=== PATIENT | male | born 1980 | race African-American/Black ===

== ENCOUNTER 2022-05-10 22:18 | Emergency (ER) | payer SELFPAY ==
[2022-05-10 22:16] VITALS: BP 110/71; PULSE 80; RESP 16; TEMP 36.6; O2SAT 100
[2022-05-10 22:21] VITALS: O2SAT 100
[2022-05-10 22:30] VITALS: O2SAT 100
[2022-05-10 22:31] VITALS: BP 112/77; O2SAT 99
[2022-05-10 22:45] VITALS: O2SAT 99
[2022-05-10 22:48] VITALS: BP 113/68; O2SAT 98
[2022-05-10] MEDS: SODIUM CHLORIDE 0.9% IV 1,000 ML 999 ML IV CONT (22:50)
--- NOTE | 2022-05-10 23:11 | ED.DIZZY ---
HPI - Dizziness General Chief Complaint: Syncope Stated Complaint: DIZZY Time Seen by Provider: 05/10/22 22:45 History of Present Illness HPI Narrative: 41-year-old male presents emergency room secondary to a near syncopal episode. He gave plasma earlier today. He got home had not eaten anything but some crackers. He is feeling extremely weak and questionable whether he may have passed out for a few seconds. Patient is not drank a significant amount of fluids today. Last time he gave plasma was about 4 years ago. Also complaining of some muscle cramping seem to be worse in his legs. Denies any chest pain shortness of breath. Related Data Allergies Allergy/AdvReac Type Severity Reaction Status Date / Time No Known Drug Allergies Allergy Mild Verified 09/19/11 11:09 Review of Systems Review of Systems: CONSTITUTIONAL: Denies fever, chills, or sweats. EYES: Denies visual changes, redness, or discharge. ENT: Denies rhinorrhea, congestion, sore throat, or otalgia. CARDIOVASCULAR: Denies chest pain, palpitations, or edema. RESPIRATORY: Denies cough or dyspnea. GASTROINTESTINAL: Denies abdominal pain, nausea, vomiting, or diarrhea. GENITOURINARY: Denies dysuria or hematuria. SKIN: Denies rash or itching. MUSCULOSKELETAL: Denies back pain, joint pain, or myalgia. NEUROLOGIC: Denies headache, numbness, or weakness. PSYCHIATRIC: Denies anxiety or depression. PMFSH Past Medical History Medical History (Updated 05/10/22 @ 23:54 by Wagner Freitas DO) No pertinent past medical history Social History Social History (Updated 05/10/22 @ 23:12 by Wagner Freitas DO) Living arrangements: with family Exam Narrative: APPEARANCE: Well appearing, no pain or distress, well-nourished. Head Normocephalic and atraumatic. EYES: PERRLA/EOMI, conjunctivae clear. NOSE: Normal with no drainage EARS:TMS clear with Melissa, with good light reflex. THROAT: Pharynx clear, no exudate. Lips are dry NECK: Supple. No adenopathy, no masses. RESPIRATORY: Airway patent, respirations nonlabored. Clear to auscultation bilaterally, no rales, rhonchi, wheezing. CARDIOVASCULAR: Regular rate and rhythm without murmurs, rubs, or gallops. ABDOMINAL: Soft, nontender, nondistended, no hepatosplenomegaly Musculoskeletal: Moves all extremities. Strength/ROM intact, No edema, No calf tenderness. NEURO: Alert. Cranial nerves II through XII intact. Normal gait. Good coordination. Nonfocal examination. SKIN:: Warm, dry. Normal Color PSYCHIATRIC: Normal affect/mood, normal interaction Course Vital Signs Vital signs: Vital Signs Temperature 97.8 F 05/10/22 22:16 Pulse Rate 80 05/10/22 22:16 Respiratory Rate 16 05/10/22 22:16 Blood Pressure 110/71 05/10/22 22:16 Pulse Oximetry 100 05/10/22 22:16 Oxygen Delivery Room Air 05/10/22 22:16 Temperature 97.8 F 05/10/22 22:16 Pulse Rate 80 05/10/22 22:16 Respiratory Rate 16 05/10/22 22:16 Blood Pressure 113/68 05/10/22 22:48 Pulse Oximetry 98 05/10/22 22:48 Oxygen Delivery Room Air 05/10/22 22:16 MDM - Dizziness MDM Narrative Medical decision making narrative: Presentation is indicative of probable dehydration. Patient gave plasma today and did not drink very much. He also did not eat very much. In the emergency room patient was given a liter of normal saline and began feeling much better. He wants to go home at this time to get some rest. Told him he needs to increase his fluid consumption. Discharge Plan Discharge Clinical Impression: Dehydration, Near syncope Patient Disposition: Home, Self-Care Condition: Improved Instructions: Dehydration (ED) Additional Instructions: Increase fluids. Return if worse. Tylenol Advil as needed. Follow-up/Referrals: PHYSICIAN,[employer]PELL[employer] JUDGE [Primary Care Provider] - Time of Disposition: 23:54
[2022-05-10] MEDS: KETOROLAC 30 MG/ML VIAL (*BKC) IV PUSH (23:40)
[2022-05-11 00:35] VITALS: BP 107/60; PULSE 71; RESP 16; O2SAT 97
== END 2022-05-11 00:37 | disposition home or self-care (01) ==
PROVIDERS: Emergency Provider Emergency Medicine
DX: E86.0 Dehydration (principal); R55 Syncope and collapse
CPT/HCPCS: 96361; 96374; 99284; J1885; J7030

== ENCOUNTER 2022-06-30 12:11 | Emergency (ER) | payer SELFPAY ==
[2022-06-30 12:46] VITALS: BP 135/87; PULSE 89; RESP 14; TEMP 36.6; O2SAT 98
--- NOTE | 2022-06-30 12:58 | ED.GENADULT ---
HPI - General Adult General Chief complaint: Extremity Injury, Upper Stated complaint: WANTS CHECK UP Time Seen by Provider: 06/30/22 12:51 History of Present Illness HPI narrative: Pt presents requesting medical clearance to go back to work. Pt had bruising from blood draw but says it's fine now. Pt has no complaints. Related Data Allergies Allergy/AdvReac Type Severity Reaction Status Date / Time No Known Drug Allergies Allergy Mild Verified 09/19/11 11:09 Review of Systems Review of Systems: All systems reviewed & are unremarkable except as noted in HPI and below PMFSH Past Medical History Medical History (Updated 06/30/22 @ 13:01 by Leila Poon III, DO) No pertinent past medical history Exam Const: General: healthy appearing and no acute distress Nutritional Appearance: well nourished Orientation/consciousness: patient oriented x3 Limitations: no limitations HENMT: Head: normal to inspection Mouth: Yes Normal oral and palatal mucosa present Eyes: Conjunctivae: conjunctivae normal EOM: EOMs intact bilaterally Neck: Neck: normal visual inspection, no lymphadenopathy and no meningeal signs Chest: Chest palpation & inspection: normal inspection of the chest Resp: Effort & Inspection: normal respiratory effort Auscultation: clear to auscultation bilaterally Cardio: Rate: regular rate Rhythm: regular rhythm GI: GI Palp: Yes Soft to palpation Skin: General skin exam: normal color Other: small bruise fro site of blood draw in AC's b/l no clot Neuro: General: patient oriented x3, moves all extremities, no meningeal signs and no focal motor deficits Cranial nerves: Yes Nystagmus not present Speech: normal speech Extrem: General: normal to inspection Psych: Mental Status: mental status grossly normal Affect: normal affect Attitude: cooperative Course Vital Signs Vital signs: Vital Signs Temperature 97.9 F 06/30/22 12:46 Pulse Rate 89 06/30/22 12:46 Respiratory Rate 14 06/30/22 12:46 Blood Pressure 135/87 06/30/22 12:46 Pulse Oximetry 98 06/30/22 12:46 Oxygen Delivery Room Air 06/30/22 12:46 Temperature 97.9 F 06/30/22 12:46 Pulse Rate 89 06/30/22 12:46 Respiratory Rate 14 06/30/22 12:46 Blood Pressure 135/87 06/30/22 12:46 Pulse Oximetry 98 06/30/22 12:46 Oxygen Delivery Room Air 06/30/22 12:46 Medical Decision Making Vital Signs Vital Signs: Vital Signs Temperature 97.9 F 06/30/22 12:46 Pulse Rate 89 06/30/22 12:46 Respiratory Rate 14 06/30/22 12:46 Blood Pressure 135/87 06/30/22 12:46 Pulse Oximetry 98 06/30/22 12:46 Oxygen Delivery Room Air 06/30/22 12:46 Temperature 97.9 F 06/30/22 12:46 Pulse Rate 89 06/30/22 12:46 Respiratory Rate 14 06/30/22 12:46 Blood Pressure 135/87 06/30/22 12:46 Pulse Oximetry 98 06/30/22 12:46 Oxygen Delivery Room Air 06/30/22 12:46 Discharge Plan Discharge Clinical Impression: Bruise of both arms Patient Disposition: Home, Self-Care Condition: Stable Instructions: Antibiotic Form, Contusion in Adults (ED) Follow-up/Referrals: PHYSICIAN,[employer] [Primary Care Provider] -
== END 2022-06-30 13:25 | disposition home or self-care (01) ==
LOC: ANHED 13:16
PROVIDERS: Emergency Provider Emergency Medicine
DX: Z48.00 Encounter for change or removal of nonsurgical wound dressing (principal)
CPT/HCPCS: 99281